=== PATIENT | male | born 1955 | race Caucasian/White ===

== ENCOUNTER 2020-02-18 16:21 | Inpatient (IN) | payer OTHER ==
[~2020-02-18] VITALS: Ht 175.3 cm; Wt 93.0 kg
[~2020-02-18 16:21] MED LIST: SOD FERRIC GLUC 125 MG in IV NS 0.9% 100 ML IV SCH
--- NOTE | 2020-02-18 16:21 | NUR ---
PT BIB SELF C/O BLACK TARRY STOOL FOR 1 WEEK. PT IS AAOX4, NOT IN RESPIRATORY DISTRESS, HOOKED TO MUNICIPAL COURT MAGISTRATE, KEPT RESTED AND COMFORTABLE. WILL CONTINUE TO MONITOR.
--- NOTE | 2020-02-18 16:34 | NUR ---
SEEN AND EXAMINED BY .
--- NOTE | 2020-02-18 16:40 | NUR ---
IV LINE ESTABLISHED BLOOD DRAWN AND SENT TO LAB.
[2020-02-18 17:14] LABS: BASOPHILS # (AUTO) 0.1 /CMM (0.0-0.2); BASOPHILS % (AUTO) 0.9 % (0.0-2.0); EOSINOPHILS % (AUTO) 4.1 % (0.0-6.0); HEMATOCRIT 22 % (39-51); HEMOGLOBIN 7.5 g/dL (13.5-17.5); LYMPHOCYTES # (AUTO) 2.3 /CMM (0.8-4.8); MEAN CORPUSCULAR HGB CONC 34 g/dl (31.0-36.0); MEAN CORPUSCULAR VOLUME 95 fL (80-96); MONOCYTES # (AUTO) 0.6 /CMM (0.1-1.30); MONOCYTES % (AUTO) 8.1 % (2.0-12.0); NEUTROPHILS # (AUTO) 4.3 /CMM (1.8-8.9); NEUTROPHILS % (AUTO) 56.9 % (43.0-81.0); PLATELET COUNT (AUTO) 265 /CMM (150-450); RED BLOOD CELL COUNT(AUTO) 2.32 MIL/uL (4.5-6.0); WHITE BLOOD COUNT (AUTO) 7.6 K/uL (4.3-11.0)
[2020-02-18 17:24] LABS: CALCIUM, SERUM 8.2 mg/dL (8.5-10.1); CARBON DIOXIDE 23 mmol/L (21-32); CHLORIDE 108 mmol/L (98-107); CREATININE 1.6 mg/dL (0.6-1.3); GLUCOSE 125 mg/dL (74-106); POTASSIUM 3.9 mmol/L (3.5-5.1); SODIUM SERUM 141 mmol/L (136-145); UREA NITROGEN, BLOOD 29 mg/dL (7-18)
[2020-02-18 17:30] LABS: ALANINE AMINOTRANSFERASE 26 U/L (12-78); ALBUMIN 3.2 g/dL (3.4-5.0); ALKALINE PHOSPHATASE 36 U/L (46-116); ASPARTATE AMINOTRANSFERASE 18 U/L (15-37); BILIRUBIN,DIRECT 0.1 mg/dL (0.0-0.2); BILIRUBIN,TOTAL 0.3 mg/dL (0.2-1.0); LIPASE 164 U/L (73-393); TOTAL PROTEIN, SERUM 6.6 g/dL (6.4-8.2)
--- NOTE | 2020-02-18 17:40 | NUR ---
MOVE SHEET SUBMITTED
[2020-02-18] MEDS ORDERED: NITR0.4T48 SL (18:08)
[2020-02-18] MEDS ORDERED: CLOP75TA15 PO (18:08)
[2020-02-18] MEDS ORDERED: ROSU40TA PO (18:08)
[2020-02-18] MEDS ORDERED: CARV6.252 PO (18:08)
[2020-02-18] MEDS ORDERED: NICO-676 TD (18:08)
[2020-02-18] MEDS ORDERED: ASPI-1169 PO (18:08)
--- NOTE | 2020-02-18 18:15 | NUR ---
SPOKED TO JOSELINE ORDER DETAILER WILL CALL BACK.
--- NOTE | 2020-02-18 18:26 | NUR ---
CALLED ANN OGLESBY [phone] UROLOGY PHYSICIAN PAGED.
[2020-02-18] MEDS ORDERED: PANTOPRAZOLE 40 MG VIAL IV ONE (18:30)
[2020-02-18] MEDS ORDERED: PANTOPRAZOLE 40 MG VIAL ONE (18:30)
--- NOTE | 2020-02-18 19:05 | NUR ---
REPORT GIVEN TO ORVILLE LOMBARDO FOR MARY.
--- NOTE | 2020-02-18 19:25 | NUR ---
BLOOD TRANSFUSION INITIATED
--- NOTE | 2020-02-18 19:52 | NUR ---
GURJITID SWABBED, SENT TO LAB.
[2020-02-18] MEDS ORDERED: ACETAMINOPHEN 325 MG TABLET PO PRN (21:00)
[2020-02-18] MEDS ORDERED: ZOLPIDEM TARTRATE 5 MG TABLET PO PRN (21:00)
[2020-02-18] MEDS ORDERED: NITROGLYCERIN 0.4 MG/TAB BOTTLE SL PRN (21:00)
--- NOTE | 2020-02-18 21:30 | NUR ---
REPORT GIVEN, PT TRANSFERED PER ACLS PROTOCOL
[2020-02-18 21:34] LABS: HEMOGLOBIN 7.5 g/dL (13.5-17.5)
--- NOTE | 2020-02-18 21:45 | NUR ---
RN OPENING NOTE PT ARRIVED TO THE UNIT VIA GURNEY , PT IS A/A/O X4. PT IS ON RA SATING 99%, NO SOB NOTED. PT ON TELE MONITOR SHOWING SR IN 60s. SAFETY MEASURES IN PLACE BED AT LOWEST POSITION LOCKED, SIDE RAILS UP X2, CALL LIGHT IN REACH.
[2020-02-18] MEDS: PANTOPRAZOLE 40 MG VIAL IV SCH (23:05)
[2020-02-18] MEDS: IV 1/2NS 1000 ML 1,000 ML IV PRN (23:45)
[2020-02-19] VITALS (13 sets, daily range): BP systolic 90–133; BP diastolic 41–66
[2020-02-19 07:00] LABS: CALCIUM, SERUM 8.2 mg/dL (8.5-10.1); CREATININE 1.6 mg/dL (0.6-1.3); POTASSIUM 4.2 mmol/L (3.5-5.1)
[2020-02-19 07:12] LABS: HEMOGLOBIN 7.8 g/dL (13.5-17.5)
--- NOTE | 2020-02-19 07:23 | NUR ---
RN CLOSING NOTE PT REMAINED STABLE DURING MY SHIFT. REPORT GIVEN TO INCOMING SHIFT FOR MARY.
--- NOTE | 2020-02-19 08:00 | NUR ---
RN OPENING NOTE PT IS SLEEPING IN BED , PT IS A/A/O X4. PT IS ON RA SATING 99%, NO SOB NOTED. PT ON TELE MONITOR SHOWING SR IN 60s. SAFETY MEASUREMENTS ARE IMPLEMENTED BY HOSPITAL POLICY.BED IS AT LOWEST POSITION ,LOCKED, AND SIDE RAILS UP X2, CALL LIGHT IN REACH.WILL CONTINUE TO MONITOR
--- NOTE | 2020-02-19 08:30 | NUR ---
RN NOTES DR SANDHU ORDERED 1 UNIT OF BLOOD
--- NOTE | 2020-02-19 08:30 | NUR ---
RN NOTES GOT CONSENT FORM SIGNED BY PATIENT FOR ENDOSCOPY.
[2020-02-19] MEDS: NICOTINE PATCH (14MG) 14 MG PATCH.TD24 TD SCH (08:45)
[2020-02-19] MEDS: ATORVASTATIN 40 MG TABLET PO SCH (08:46)
[2020-02-19] MEDS: CARVEDILOL 6.25 MG TABLET PO SCH ×2 (08:47→16:34)
[2020-02-19] MEDS: PANTOPRAZOLE 40 MG VIAL IV SCH ×2 (08:51→16:31)
[2020-02-19 09:16] LABS: HEMOGLOBIN 7.9 g/dL (13.5-17.5)
--- NOTE | 2020-02-19 11:30 | NUR ---
RN NOTES DR MIJARES CALLED FACE TIME THE PATIENT
--- NOTE | 2020-02-19 12:00 | NUR ---
RN NOTES DR SANDHU SAID HOLD THE BLOOD TRANSFUSION
[2020-02-19] MEDS: SOD FERRIC GLUC 125 MG in IV NS 0.9% 100 ML IV SCH (14:38)
--- NOTE | 2020-02-19 15:34 | NUR ---
RN NOTES CALLED FROM SURGERY DEPARTMENT . ENDOSCOPY IS GOING TO BE AROUND 8-8:15 HAVE ANOTHER CASE AHEAD
--- NOTE | 2020-02-19 19:10 | NUR ---
RN MS NOTES RECEIVED PATIENT IN BED AWAKE ALERT AND ORIENTED X4, RESPIRATIONS EVEN AND UNLABORED WITH EQUAL RISE AND FALL OF CHEST, DENIES ANY PAIN OR DISCOMFORT AMBULATORY CURRENTLY REMAINS NPO FOR EGD SCHEDULED AT 1999. RIGHT AC #18 G INTACT AND PATENT, NO REDNESS, NO INFILTRATION PRESENT, ORIENTED TO STAFF AND CALL LIGHT AND KEPT WITHIN REACH ,SAFETY PRECAUTIONS IN PLACE, LOW BED AND LOCKED, REMAINS COMFORTABLE , ALL NEEDS ATTENDED.
[2020-02-19] MEDS ORDERED: ANESTHESIA TRAY IN PYXIS 1 EA TRAY MC ONE (19:17)
--- NOTE | 2020-02-19 19:19 | NUR ---
RN CLOSING NOTE PT IS RESTING IN BED AND AWAITING FOR ENDOSCOPY PROCEDURE, PT IS A/A/O X4. PT IS ON RA SATING 99%, NO SOB NOTED. PT ON TELE MONITOR SHOWING SR IN 60s. SAFETY MEASUREMENTS ARE IMPLEMENTED BY HOSPITAL POLICY. BED AT LOWEST POSITION LOCKED, SIDE RAILS UP X2, CALL LIGHT IN REACH.WILL ENDORSE TO NIGHT NURSE FOR MARY
--- NOTE | 2020-02-19 19:58 | NUR ---
rn ms notes patient left unit in stable condition for egd taken by surgery staff left in stable condition.
--- NOTE | 2020-02-19 20:59 | NUR ---
rn ms notes received call from dr kirby with new orders to give plavix 75mg po tonight. advance diet as tolerated, start with clear liquids. transfuse 1 unit prbc. orders read back and carried out.
[2020-02-19] MEDS ORDERED: CLOPIDOGREL BISULFATE 75 MG TABLET PO ONE (21:00)
--- NOTE | 2020-02-19 21:20 | NUR ---
rn ms notes patient returned for egd awake alert and oriented x4, respirations even and unlabored with equal rise and fall of chest, vs stable 118/57,95%,85,98.0,18.
[2020-02-20 01:10] VITALS: BP 115/65
--- NOTE | 2020-02-20 01:10 | NUR ---
rn ms notes 1unit pRBC transfused no adverse reactions vs remained stable throughout transfusion. see transfusion set for vitals.
[2020-02-20] MEDS: IV 1/2NS 1000 ML 1,000 ML IV PRN ×2 (01:12→15:29)
[2020-02-20 03:05] LABS: BASOPHILS # (AUTO) 0.1 /CMM (0.0-0.2); BASOPHILS % (AUTO) 0.8 % (0.0-2.0); EOSINOPHILS % (AUTO) 3.3 % (0.0-6.0); HEMATOCRIT 24 % (39-51); HEMOGLOBIN 8.2 g/dL (13.5-17.5); LYMPHOCYTES # (AUTO) 1.9 /CMM (0.8-4.8); LYMPHOCYTES % (AUTO) 26.9 % (20.0-44.0); MEAN CORPUSCULAR HGB CONC 34 g/dl (31.0-36.0); MEAN CORPUSCULAR VOLUME 92 fL (80-96); MONOCYTES # (AUTO) 0.6 /CMM (0.1-1.30); MONOCYTES % (AUTO) 9.1 % (2.0-12.0); NEUTROPHILS # (AUTO) 4.2 /CMM (1.8-8.9); NEUTROPHILS % (AUTO) 59.9 % (43.0-81.0); PLATELET COUNT (AUTO) 212 /CMM (150-450); WHITE BLOOD COUNT (AUTO) 7.1 K/uL (4.3-11.0)
[2020-02-20 03:16] LABS: CALCIUM, SERUM 7.9 mg/dL (8.5-10.1); CREATININE 1.6 mg/dL (0.6-1.3); POTASSIUM 3.7 mmol/L (3.5-5.1)
[2020-02-20 04:05] VITALS: BP 106/55
--- NOTE | 2020-02-20 07:25 | NUR ---
RN MS CLOSING NOTES PATIENT IN BED AWAKE ALERT AND ORIENTED X4, RESPIRATIONS EVEN AND UNLABORED WITH EQUAL RISE AND FALL OF CHEST, DENIES ANY PAIN OR DISCOMFORT AMBULATORY CURRENT DIET PER DR OGLESBY , REGULAR TOLERATED CLEAR LIQUIDS WELL. RIGHT AC #18 G INTACT AND PATENT, NO REDNESS, NO INFILTRATION PRESENT, CALL LIGHT KEPT WITHIN REACH ,SAFETY PRECAUTIONS IN PLACE, LOW BED AND LOCKED, REMAINS COMFORTABLE , ALL NEEDS ATTENDED WILL ENDORSE TO NEXT SHIFT.
--- NOTE | 2020-02-20 08:07 | NUR ---
MS/RN OPENING NOTES RECEIVED PATIENT AWAKE ON BED. ALERT AND ORIENTED X4. PATIENT IN NO RESPIRATORY DISTRESS NOTED. DENIES PAIN AT THIS TIME. WILL CONTINUE TO MONITOR.
[2020-02-20] MEDS: ASPIRIN EC 81 MG TABLET.DR PO SCH (08:41)
[2020-02-20] MEDS: ATORVASTATIN 40 MG TABLET PO SCH (08:42)
[2020-02-20] MEDS ORDERED: FERR325T23 PO (08:42)
[2020-02-20] MEDS: CARVEDILOL 6.25 MG TABLET PO SCH ×2 (08:42→16:43)
[2020-02-20] MEDS ORDERED: PANT40TA2 PO (08:42)
[2020-02-20] MEDS: NICOTINE PATCH (14MG) 14 MG PATCH.TD24 TD SCH (08:44)
[2020-02-20] MEDS: PANTOPRAZOLE 40 MG VIAL IV SCH ×2 (08:47→16:43)
[2020-02-20 09:09] LABS: HEMOGLOBIN 8.3 g/dL (13.5-17.5)
--- NOTE | 2020-02-20 09:44 | NUR ---
MS/RN NOTES PATIENT REFUSED FOR NICOTINE PATCH PLACEMENT. EXPLAINED THE RISK AND BENEFITS PATIENT STILL REFUSING, PATIENT VERBALIZED HE DOESN'T NEED IT. WILL CONTINUE TO MONITOR.
--- NOTE | 2020-02-20 11:00 | NUR ---
spoke with dr. kirby and he cancelled discharge patient need to sty one more day to make sure no bleeding.
--- NOTE | 2020-02-20 11:00 | NUR ---
MS/RN NOTES DR. SANDHU ORDER TO CANCEL THE DISCHARGE FOR THE PATIENT.
--- NOTE | 2020-02-20 11:07 | NUR ---
MS/RN NOTES DR. OGLESBY ORDER CLEAR LIQUID DIET, 1 GAL GOLYTELY, NPO POST MIDNIGHT, AND CONSENT FOR COLONOSCOPY NOTED AND CARRIED OUT. DR. SANDHU IS AWARE FOR THE PROCEDURE.
[2020-02-20] MEDS ORDERED: PEG 3350/NA SULF,BICARB,CL/KCL 4,000 ML BOTTLE PO ONE ×3 (11:30→17:00)
[2020-02-20] MEDS: SOD FERRIC GLUC 125 MG in IV NS 0.9% 100 ML IV SCH (13:32)
[2020-02-20 16:16] LABS: HEMOGLOBIN 7.9 g/dL (13.5-17.5)
--- NOTE | 2020-02-20 18:51 | NUR ---
MS/RN CLOSING NOTES PATIENT IS ON BED. ALERT AND ORIENTED X 4. PATIENT DENIES PAIN AT THIS TIME. PATIENT IN NO APPARENT RESPIRATORY DISTRESS NOTED. IV ACCESS AT RIGHT AC # WITH IV FLUID OF 1/2 NS AT 100 ML/HR ON AND INFUSING WELL. SEEN AND EXAMINED BY MD WITH ORDERS MADE AND CARRIED OUT. ALL DUE MEDICATIONS WAS GIVEN. SAFETY PRECAUTIONS WAS IN PLACED. BED IN LOWEST POSITION AND LOCKED, SIDERAILS UP X2. CALL LIGHT WITHIN REACH. PATIENT IS FOR COLONOSCOPY TOMORROW, CONSENT WAS SIGN AND ATTACH TO THE CHART. WILL ENDORSED TO ACID PATROLLER FOR MARY.
--- NOTE | 2020-02-20 19:51 | NUR ---
RN NOTES VERIFY TO DR. SANDHU ABOUT THE ORDER FOR CLOPIDOGREL 75MG PO SCHEDULED TO BE GIVEN NOW, INFORM HIM ABOUT THE COLONOSCOPY PROCEDURE OF THE PT GHANSHYAM AM, DR. SANDHU SAYS YES START THE CLOPIDOGREL NOTED AND CARRIED OUT
[2020-02-20] MEDS: CLOPIDOGREL BISULFATE 75 MG TABLET PO SCH (19:54)
[2020-02-20 20:00] VITALS: BP 132/71
--- NOTE | 2020-02-20 20:40 | NUR ---
RN OPENING NOTES RECEIVED PATIENT IN BED A/A/O X4. PT ON RA SATING ABOVE 95%. NO SOB NOTED. SAFETY MEASURES IN PLACE CALL LIGHT IN REACH, BED AT LOWEST POSITION,LOCKED, SIDE RAILS UP X2.
[2020-02-20 21:14] LABS: HEMOGLOBIN 8.1 g/dL (13.5-17.5)
--- NOTE | 2020-02-21 02:57 | NUR ---
RN NOTE ENCOURAGED PT TO DRINK REMAINING 200 ML GOLYTELY SOLUTION, PT IS REFUSING BECAUSE OF TASTE. EXPLAINED IMPORTANCE D/T COLONOSCOPY. EXPLAINED RISKS VS ADVANTAGES. I OFFERED HIM TO COMPLETE IT X4. PT CONTINUES TO REFUSE, CHARGE NURSE NOTIFIED.
[2020-02-21 04:00] VITALS: BP 141/74
[2020-02-21 04:07] LABS: CALCIUM, SERUM 8.2 mg/dL (8.5-10.1); CREATININE 1.5 mg/dL (0.6-1.3); POTASSIUM 4.2 mmol/L (3.5-5.1)
[2020-02-21 04:44] LABS: BASOPHILS % (AUTO) 0.7 % (0.0-2.0); EOSINOPHILS % (AUTO) 4.2 % (0.0-6.0); HEMATOCRIT 23 % (39-51); HEMOGLOBIN 8.1 g/dL (13.5-17.5); LYMPHOCYTES # (AUTO) 1.7 /CMM (0.8-4.8); LYMPHOCYTES % (AUTO) 25.5 % (20.0-44.0); MEAN CORPUSCULAR HGB CONC 35 g/dl (31.0-36.0); MEAN CORPUSCULAR VOLUME 92 fL (80-96); MONOCYTES # (AUTO) 0.6 /CMM (0.1-1.30); MONOCYTES % (AUTO) 8.5 % (2.0-12.0); NEUTROPHILS # (AUTO) 4.1 /CMM (1.8-8.9); NEUTROPHILS % (AUTO) 61.1 % (43.0-81.0); PLATELET COUNT (AUTO) 215 /CMM (150-450); RED BLOOD CELL COUNT(AUTO) 2.54 MIL/uL (4.5-6.0); WHITE BLOOD COUNT (AUTO) 6.8 K/uL (4.3-11.0)
[2020-02-21] MEDS ORDERED: ANESTHESIA TRAY IN PYXIS 1 EA TRAY MC ONE (05:30)
--- NOTE | 2020-02-21 06:43 | NUR ---
RN NOTE RECEIVED CALL FROM SURGERY ( [facility]) REGARDING COLONOSCOPY, NO ACTIVE BLEEDING AND NO BIOPSY DONE.
--- NOTE | 2020-02-21 07:08 | NUR ---
RECEIVED PT FROM SURGERY IN STABLE CONDITION.VS BP 133/77, HR 74, O2 95%, RR 18, TEMP 97.8.
--- NOTE | 2020-02-21 07:25 | NUR ---
RN OPENING NOTES RECEIVED PT IN BED AWAKE, A/O X4. PT ON RA SATURATING @ 95%. NO SOB OR ANY RESPIRATORY DISTRESS NOTED. LFA #22 INTACT, PATENT AND RUNNING 1/2 NS @ 50ML/HR. INFUSING WELL. SAFETY MEASURES OBSERVED. CALL LIGHT WITHIN REACH. BED LOCKED AND AT LOWEST POSITION. SIDE RAILS UP X2. WILL CONTINUE TO MONITOR
--- NOTE | 2020-02-21 07:27 | NUR ---
PT REMAINED STABLE DURING MY SHIFT, REPORT GIVEN TO INCOMING SHIFT FOR MARY.
[2020-02-21 08:00] VITALS: BP 133/77
[2020-02-21] MEDS: NICOTINE PATCH (14MG) 14 MG PATCH.TD24 TD SCH (09:36)
[2020-02-21] MEDS: CLOPIDOGREL BISULFATE 75 MG TABLET PO SCH (09:36)
[2020-02-21 09:37] VITALS: BP 133/77
[2020-02-21] MEDS: ASPIRIN EC 81 MG TABLET.DR PO SCH (09:37)
[2020-02-21] MEDS: PANTOPRAZOLE 40 MG VIAL IV SCH (09:37)
[2020-02-21] MEDS: CARVEDILOL 6.25 MG TABLET PO SCH (09:37)
[2020-02-21] MEDS: ATORVASTATIN 40 MG TABLET PO SCH (09:38)
[2020-02-21 11:37] LABS: HEMOGLOBIN 7.7 g/dL (13.5-17.5)
--- NOTE | 2020-02-21 14:00 | NUR ---
RN NOTES PT REFUSED [facility] DESPITE EDUCATION. INSISTS ON BEING DISCHARGED. MD AWARE. WILL CONTINUE TO MONITOR.
[2020-02-21 15:59] LABS: HEMOGLOBIN 7.9 g/dL (13.5-17.5)
--- NOTE | 2020-02-21 16:50 | NUR ---
RN NOTES DISCHARGED PT TO HOME IN STABLE CONDITION. OFFERED FLU AND PNEUMONIA VACCINES X3. PT REFUSED. EDUCATION PROVIDED. STILL REFUSED. VS STABLE UPON DISCHARGE.
== END 2020-02-21 16:50 | disposition home or self-care (01) | DRG 378 ==
LOC: ER 16:27 → TELE1 21:21 → MEDSG1 02-19 12:45
PROVIDERS: ADMIT Internal Medicine; ATTEND Internal Medicine
PROC: 30233N1 Transfusion of Nonautologous Red Blood Cells into Peripheral Vein, Percutaneous Approach (ICD-10-PCS; 2020-02-18)
PROC: 0W3P8ZZ Control Bleeding in Gastrointestinal Tract, Via Natural or Artificial Opening Endoscopic (ICD-10-PCS; principal; 2020-02-19)
PROC: 0DJD8ZZ Inspection of Lower Intestinal Tract, Via Natural or Artificial Opening Endoscopic (ICD-10-PCS; 2020-02-21)
DX: K31.811 Angiodysplasia of stomach and duodenum with bleeding (principal); D62 Acute posthemorrhagic anemia; N17.9 Acute kidney failure, unspecified; E78.5 Hyperlipidemia, unspecified; Z79.01 Long term (current) use of anticoagulants; I12.9 Hypertensive chronic kidney disease with stage 1 through stage 4 chronic kidney disease, or unspecified chronic kidney disease; Z79.82 Long term (current) use of aspirin; I25.10 Atherosclerotic heart disease of native coronary artery without angina pectoris; Z79.899 Other long term (current) drug therapy; Z98.61 Coronary angioplasty status; Z72.0 Tobacco use; K22.2 Esophageal obstruction; K64.8 Other hemorrhoids; K64.4 Residual hemorrhoidal skin tags; N18.30 Chronic kidney disease, stage 3 unspecified; K29.70 Gastritis, unspecified, without bleeding
CPT/HCPCS: 36415; 71045-TC; 80048-TC; 80076-TC; 83690-TC; 84484-TC; 85025-TC; 85027-TC; 85730-TC; 86850-TC; 87081-TC; C9113; C9803; G0378; J2704; J2916; J3490; J7030; J7050; P9016-BL